=== PATIENT | female | born 1950 | race Caucasian/White ===

== ENCOUNTER 2022-03-03 12:43 | Emergency (ER) | payer MEDICARE ==
[~2022-03-03] VITALS: Ht 170.2 cm; Wt 72.6 kg
== END 2022-03-03 13:52 | disposition home or self-care (01) ==
LOC: FSED 13:10
DX: S51.831A Puncture wound without foreign body of right forearm, initial encounter (principal); W55.03XA Scratched by cat, initial encounter; Y92.098 Other place in other non-institutional residence as the place of occurrence of the external cause; E78.5 Hyperlipidemia, unspecified; E03.9 Hypothyroidism, unspecified; J45.909 Unspecified asthma, uncomplicated; B19.20 Unspecified viral hepatitis C without hepatic coma
CPT/HCPCS: 99283